=== PATIENT | male | born 1960 | race Caucasian/White ===

== ENCOUNTER 2020-08-12 00:29 | Emergency (ER) | payer BC, SELFPAY ==
[2020-08-12 00:33] VITALS: BP 171/77; PULSE 68; RESP 18; TEMP 36.4; O2SAT 96
--- NOTE | 2020-08-12 00:58 | ED.UPPEXIN ---
HPI - Extremity Injury (Upper) General Chief Complaint: Extremity Injury, Upper Stated Complaint: right index finger laceration Time Seen by Provider: 08/12/20 00:33 Source: patient Mode of arrival: ambulatory Limitations: no limitations History of Present Illness HPI narrative: Patient is a 60 year old male who presents with injury to right index finger. He reports shaving it with a saw . Patient denies other injuries. Patient is on anticoagulants. Patient reports he has been unable to stop bleeding and reports that is what brought him to ED. Patient is not up to date on tetanus. MD complaint: injury to: right and finger Related Data Home Medications Medication Instructions Recorded Confirmed carvedilol 25 mg tablet 25 mg PO Q12H 11/18/19 02/03/20 clopidogrel 75 mg tablet 75 mg PO DAILY 11/18/19 02/03/20 ezetimibe 10 mg-simvastatin 20 mg 1 tablet PO DAILY 11/18/19 02/03/20 tablet ramipril 5 mg capsule 5 mg PO DAILY 11/18/19 02/03/20 Allergies Allergy/AdvReac Type Severity Reaction Status Date / Time No Known Allergies Allergy Verified 08/12/20 00:30 Review of Systems Review of Systems: Narrative: CONSTITUTIONAL: Denies fever, chills, or sweats. EYES: Denies visual changes, redness, or discharge. ENT: Denies rhinorrhea, congestion, sore throat, or otalgia. CARDIOVASCULAR: Denies chest pain, palpitations, or edema. RESPIRATORY: Denies cough or dyspnea. GASTROINTESTINAL: Denies abdominal pain, nausea, vomiting, or diarrhea. GENITOURINARY: Denies dysuria or hematuria. SKIN: Laceration to right index finger MUSCULOSKELETAL: Denies back pain, joint pain, or myalgia. NEUROLOGIC: Denies headache, numbness, dizziness, or weakness. PSYCHIATRIC: Denies anxiety or depression. [facility] Past Medical History Medical History Anxiety CAD in [place] artery Dyslipidemia Essential (primary) hypertension History of prediabetes Hypercholesteremia Myocardial infarction (~2006) Prediabetes Surgical History Surgical History History of coronary artery stent placement (~2006) Social History Social History Smoking packs per day: 0.75 Smoking cigarettes per day: 15.0 Years smoked: 30 Smoking pack-years: 22.50 Smoking status: Current every day smoker Tobacco type: cigarettes Additional smoking assessment comments: consumes 10-19 cigarettes daily Alcohol intake: never Substance use: never Substance use type: does not use Gender identity (if verbalized by the patient): Male Exam Narrative: Exam Narrative: GENERAL: Well-appearing, well-nourished, and in no acute distress. HEAD: Normocephalic, atraumatic. EYES: EOMI. No redness or drainage. Conjunctiva are normal. ENT: Mucous membranes pink and moist. CHEST: No respiratory distress. Clear to auscultation. HEART: Regular rate and rhythm. No murmur appreciated. Normal peripheral pulses. EXTREMITIES: Normal range of motion. No edema. SKIN: Avulsion to distal right index finger NEURO: No focal deficits. Alert and oriented x3. Gait steady. PSYCH: Normal affect. No signs of depression or anxiety. Course Vital Signs Vital signs: Vital Signs Temperature 36.4 C L 08/12/20 00:33 Pulse Rate 68 08/12/20 00:33 Respiratory Rate 18 08/12/20 00:33 Blood Pressure 171/77 H 08/12/20 00:33 Pulse Oximetry 96 08/12/20 00:33 Temperature 36.4 C L 08/12/20 00:33 Pulse Rate 68 08/12/20 00:33 Respiratory Rate 18 08/12/20 00:33 Blood Pressure 171/77 H 08/12/20 00:33 Pulse Oximetry 96 08/12/20 00:33 Reviewed. Patient has been instructed to follow-up with his PCP regarding his blood pressure. MDM - Extremity Injury (Upper) MDM Narrative Medical decision making narrative: Surgicel placed on wound, dressing applied. Discussed with patient the need to follow up with PCP in 3 day
[2020-08-12] MEDS: TETANUS,DIPHTHERIA,AC PERTUSSIS ADULT (0.5 ML) BOOSTRIX IM (01:12)
[2020-08-12 01:40] VITALS: BP 136/70; PULSE 82; RESP 20; O2SAT 100
== END 2020-08-12 01:41 | disposition home or self-care (01) ==
PROVIDERS: Emergency Provider Nurse Practitioner; PCP Family Medicine
DX: S61.200A Unspecified open wound of right index finger without damage to nail, initial encounter (principal); W27.0XXA Contact with workbench tool, initial encounter; Z23 Encounter for immunization; I25.10 Atherosclerotic heart disease of native coronary artery without angina pectoris; E78.5 Hyperlipidemia, unspecified; R73.03 Prediabetes; E78.00 Pure hypercholesterolemia, unspecified; I25.2 Old myocardial infarction
CPT/HCPCS: 90471; 90715; 99282